=== PATIENT | male | born 2005 | race Two or more races ===

== ENCOUNTER 2024-02-03 10:28 | Outpatient (CLI) | payer OTHER | END 2024-02-03 10:32 | disposition home or self-care (01) | LOC: TOM 10:28 | PROVIDERS: ATTEND Orthopaedic Surgery Hand Surgery | DX: S62.313A Displaced fracture of base of third metacarpal bone, left hand, initial encounter for closed fracture (principal) ==

== ENCOUNTER 2024-02-07 06:35 | Day surgery (SDC) | payer OTHER ==
[2024-02-03 10:05] LABS: MEAN CELL VOLUME 82.2 fL (80.0-100.00); MEAN CORPUSCULAR HEMOGLOBIN 27.5 pg (27.00-32.0); MEAN CORPUSCULAR HGB CONC 33.5 g/dl (32.0-36.0); PLATELET COUNT 225 K/uL (150-450); RED CELL DISTRIBUTION WIDTH 14.9 % (11.5-14.5)
[2024-02-03 10:27] LABS: PARTIAL THROMBOPLASTIN TIME 27.6 SECONDS (22.0-34.0); PROTHROMBIN TIME 10.5 SECONDS (9.0-11.5)
[2024-02-03 10:31] LABS: PH,URINE 7.5 (5.0-8.0); URINE APPEARANCE Clear; URINE BILIRRUBIN Negative (NEGATIVE); URINE BLOOD Negative; URINE COLOR Yellow; URINE GLUCOSE Negative (NEGATIVE); URINE KETONE Negative (NEGATIVE); URINE LEUKOCYTE Negative; URINE NITRATE Negative; URINE PROTEIN Negative (NEGATIVE); URINE UROBILINOGEN 0.2 E.U./dl
[2024-02-03 10:35] LABS: URINE WBC 1.8 uL (0.0-23.2)
[2024-02-03 10:39] LABS: ALBUMIN 4.1 gm/dL (3.4-5.0); BILIRUBIN TOTAL 0.49 mg/dL (0.3-1.2); CALCIUM 9.8 mg/dL (8.5-10.1); CREATININE SERUM 1.27 mg/dL (0.70-1.30); GFR 73.06; GLOBULINA 3.6 G/DL (2.4-3.5); POTASSIUM 4.42 mEq/L (3.5-5.1); TOTAL PROTEIN 7.7 gm/dL (6.4-8.2)
[2024-02-03 10:43] LABS: URINE BACTERIA 2.5 uL (0.0-1933); URINE RBC 0.3 uL (0.0-20.8)
[2024-02-07] MEDS ORDERED: BUPIVACAINE HCL/MPF 0.5% 30ML VIAL ONE (13:27)
[2024-02-07] MEDS ORDERED: CEFAZOLIN SODIUM 1,000 MG VIAL IV ONE (14:45)
[2024-02-07] MEDS ORDERED: SUGAMMADEX SODIUM 200 MG/2 ML VIAL IV ONE (15:25)
== END 2024-02-07 17:50 | disposition home or self-care (01) ==
LOC: CIR.AMB 06:35
PROVIDERS: ATTEND Orthopaedic Surgery Hand Surgery
DX: S62.313A Displaced fracture of base of third metacarpal bone, left hand, initial encounter for closed fracture (principal)

== ENCOUNTER 2024-07-17 06:16 | Day surgery (SDC) | payer OTHER ==
[2024-07-09 13:11] LABS: PH,URINE 7.5 (5.0-8.0); URINE APPEARANCE Clear; URINE BILIRRUBIN Negative (NEGATIVE); URINE BLOOD Negative; URINE COLOR Yellow; URINE GLUCOSE Negative (NEGATIVE); URINE KETONE Negative (NEGATIVE); URINE LEUKOCYTE Negative; URINE NITRATE Negative; URINE PROTEIN Negative (NEGATIVE); URINE UROBILINOGEN 0.2 E.U./dl
[2024-07-09 13:13] LABS: URINE BACTERIA 2.4 uL (0.0-1933); URINE RBC 0.1 uL (0.0-20.8); URINE WBC 0.6 uL (0.0-23.2)
[2024-07-09 13:14] LABS: HEMATOCRIT 46.6 % (39.0-48.0); HEMOGLOBIN 15.5 g/dL (13-16.00); MEAN CELL VOLUME 83.8 fL (80.0-100.00); MEAN CORPUSCULAR HEMOGLOBIN 27.9 pg (27.00-32.0); MEAN CORPUSCULAR HGB CONC 33.4 g/dl (32.0-36.0); PLATELET COUNT 232 K/uL (150-450); RED BLOOD COUNT 5.56 M/uL (4.00-6.00); RED CELL DISTRIBUTION WIDTH 13.1 % (11.5-14.5)
[2024-07-09 13:31] LABS: INR 1.04; PARTIAL THROMBOPLASTIN TIME 27.8 SECONDS (22.0-34.0); PROTHROMBIN TIME 11.3 SECONDS (9.0-11.5)
[2024-07-09 14:03] LABS: ALBUMIN 4.3 gm/dL (3.4-5.0); BILIRUBIN TOTAL 0.63 mg/dL (0.3-1.2); CALCIUM 10.1 mg/dL (8.5-10.1); CREATININE SERUM 0.97 mg/dL (0.70-1.30); GFR 99.7; GLOBULINA 3.7 G/DL (2.4-3.5); POTASSIUM 4.83 mEq/L (3.5-5.1)
[2024-07-17] MEDS ORDERED: CEFAZOLIN SODIUM 1,000 MG VIAL ONE (09:56)
[2024-07-17] MEDS ORDERED: BUPIVACAINE HCL/MPF 0.5% 30ML VIAL ONE (09:56)
[2024-07-17] MEDS ORDERED: LIDOCAINE HCL 1%/EPINEPHRINE 20ML VIAL IJ ONE (09:56)
== END 2024-07-17 14:15 | disposition home or self-care (01) ==
LOC: CIR.AMB 06:16
PROVIDERS: ATTEND Orthopaedic Surgery Hand Surgery
DX: S62.313A Displaced fracture of base of third metacarpal bone, left hand, initial encounter for closed fracture (principal); M24.542 Contracture, left hand